=== PATIENT | female | born 1990 | race Caucasian/White ===

== ENCOUNTER 2021-03-27 14:08 | Observation (INO) | payer MEDICAID ==
[~2021-03-27] VITALS: Ht 154.9 cm; Wt 71.7 kg
[2021-03-27 15:06] VITALS: BP_SYST 129
== END 2021-03-27 15:50 | disposition home or self-care (01) ==
LOC: SPU 14:08
PROVIDERS: ADMIT Obstetrics & Gynecology; ATTEND Obstetrics & Gynecology
DX: O62.9 Abnormality of forces of labor, unspecified (principal); O34.63 Maternal care for abnormality of vagina, third trimester; N89.8 Other specified noninflammatory disorders of vagina; Z3A.35 35 weeks gestation of pregnancy
CPT/HCPCS: 81002; G0378